=== PATIENT | male | born 1970 | race Asian ===

== ENCOUNTER 2021-11-27 09:18 | Inpatient (IN) ==
[~2021-11-27 09:18] MED LIST: RAPID SEQUENCE INDUCTION BAG ONE
[2021-11-27] MEDS ORDERED: NOREPINEPHRINE/D5W 4 MG/250 ML IV ONE (09:32)
[2021-11-27] MEDS ORDERED: HEPARIN (PORCINE) 1000 UNIT/ML 10 ML (CATH LAB USE ONLY) ONE ×2 (09:37→13:27)
[2021-11-27] MEDS ORDERED: fentaNYL citrate 100 MCG/2 ML VIAL ONE ×2 (09:37→13:27)
[2021-11-27] MEDS ORDERED: MIDAZOLAM HCL 1 MG/ML 2ML VIAL ONE ×3 (09:37→13:26)
[2021-11-27] MEDS ORDERED: NITROGLYCERIN/D5W 100MCG/ML 20ML SYR ONE ×2 (09:37→13:27)
[2021-11-27] MEDS ORDERED: niCARdipine HCL INJ 2.5 MG/ML 10 ML AMP ONE ×2 (09:37→13:27)
[2021-11-27] MEDS ORDERED: SODIUM CHLORIDE 0.9% 500 ML IV STA (09:39)
[2021-11-27 09:42] LABS: iSTAT Creatinine 1.2 mg/dl (0.6-1.3); iSTAT Ionized Calcium 1.04 mmol/l (1.12-1.32); iSTAT Potassium 3.5 mmol/L (3.3-5.0)
[2021-11-27] MEDS ORDERED: PROPOFOL IV EMULSION 10 MG/ML 100 ML VIAL (CATH LAB USE ONLY) ONE (09:49)
--- NOTE | 2021-11-27 09:53 | Emergency Department Note ---
Impression & Plan Cardiac arrest, Acute CT, Atrial fibrillation, Acute hyperglycemia ED Provider Note NAME: FRANK SPEAR AGE: 51 SEX: M : 1970 ARRIVES VIA: Ambulance INFORMANT: [ems] ED PROVIDER(S): [Jostin Camilo MD] CHIEF COMPLAINT: Cardiac arrest HISTORY OF PRESENT ILLNESS: The patient is a 51-year-old male who was playing Frisbee golf when he collapsed. Bystanders did start CPR. EMS arrived the patient was without a pulse. He has had various rhythms during the resuscitation, including asystole and V. fib. He has been defibrillated 5 times, he has received 5 doses of IV epinephrine. Patient received 300 mg of IV amiodarone, 100 mg of IV lidocaine, 1 amp of IV bicarb, 1 mg of IV atropine. He received 500 cc of IV saline. There is a right proximal tibial IO line. Downtime estimated at around 40 to 45 minutes. As per EMS, the patient did regain a pulse for about 5 to 10 minutes and then, lost his pulse again. The resuscitation on the way to the hospital continued and they again regained a pulse. The patient presents to our ED with a pulse. He has a Garry airway in place. As per EMS, the friends that were with him did not know anything about his past history. Given the circumstances and his mental state, no further history obtainable. REVIEW OF SYSTEMS: Unobtainable given the mental state. PMHx/PSHx: See Below SOCIAL HISTORY: See Below. PHYSICAL EXAM: GENERAL: Patient is in no acute distress. HEENT: No acute trauma, normocephalic atraumatic, mucous membranes moist, no nasal congestion, no scleral icterus. There is a Garry airway in place orally. NECK: No adenopathy, trachea is midline. LUNGS: Clear to auscultation bilaterally when the breathing is assisted, no wheeze, no rhonchi, breath sounds equal. HEART: No murmurs, irregular rhythm, mildly tachycardic. ABDOMEN: Soft, no distention. EXTREMITIES: No cyanosis or edema, no extremity deformities appreciated. NEUROLOGIC: Unresponsive, intubated. No extremity movement seen. Occasionally, the patient appeared to take a breath above the ventilator. SKIN: No rash, no jaundice, no diaphoresis. DIFFERENTIAL DIAGNOSIS: V. fib, V. tach, CT, cardiac arrest, electrolyte imbalance, anemia, stroke, anoxia, among others. EMERGENCY DEPARTMENT COURSE/PROCEDURES: ECG: Indication was cardiac arrest. The initial ECG showed a wide-complex rhythm with ST elevation in the anterior and lateral leads. The rhythm appeared to be atrial fibrillation. The rate was 114. There was a wide QRS complex. There was no PVC. The QTc was long at 611. Repeat ECG: Indication was cardiac arrest. The ECG showed a sinus tachycardia with a rate of 111. There was ST elevation across the anterior and lateral leads consistent with acute CT. QTC was 505. No PVCs. When compared to the ECG earlier, the wide QRS complexes had resolved. A. fib was no longer present. Continuous Cardiac Monitoring: An order was placed for continuous cardiac monitoring. The monitor shows a rate of 108 with sinus tachycardia. Critical Care Note: I have personally spent 49 minutes of critical care time in the direct management of this patient. This includes bedside care, interpretation of diagnostic studies, and testing, discussion with consultants, patient, and family members, and other required patient management activities. This 49 minutes is in excess of all separately billable procedures. Intubation: This procedure was performed by me. The patient was hyper oxygenated. Using rapid technique, the patient was intubated with a glide scope. Some suction was required. No complication. The endotracheal tube was placed at 26 centimeters at the the lips. Good O2 saturation noted afterwards. Good CO2 color change. Breath sounds equal bilaterally. Post intubation chest x-ray demonstrated the tube to be in good position. MEDICAL DECISION MAKING: There was no leukocytosis or concerning anemia. There was a normal platelet count. INR was 1.1. PTT are was 2.1. There was an anion gap of 18. CO2 a bit low at 17. No renal failure. Glucose was high at around 325. ALT was elevated at 335. The bilirubin was normal. Lipase was a bit elevated at 136. The patient appeared to be in a euthyroid state. Troponin was elevated at 93, consistent with acute cardiac injury. ECG initially showed an atrial fibrillation with a wide-complex QRS. Anterior lateral ST elevation was seen. Repeat ECG showed a sinus tachycardia with a more narrow QRS complex. Anterior lateral ST elevation was seen. Chest film showed the endotracheal tube to be in proper position, no CHF or pneumonia. The patient was aggressively managed. He was given 50 mEq of IV bicarb. He received a 500 cc saline bolus. A norepinephrine drip was ordered but not started in the ED as his blood pressure improved spontaneously. The patient's Garry airway was removed and intubation was accomplished with a glide scope. A Ruff catheter and NG tube was placed. 2 peripheral IVs were initiated. I did speak with the car refinisher, Dr. Gleason. The patient was seen by Dr. Gleason at bedside. The patient is being sent to the cardiac catheterization laboratory. Dr. Gleason will start the cooling protocol in the cardiac lab. The patient appears to have suffered a cardiac arrest, he has findings consiste nt with CT. There was a significant downtime so brain anoxia is of course a concern. By report, his is on the way to the hospital. Of note, I did speak with the on-call hospitalist about the patient's case and condition. Case management has been involved. Past Med/Surg History Medical History Diabetes mellitus HTN (hypertension) Social History Smoking Status: Current every day smoker Tobacco Type: Cigarettes Allergies Allergies Allergy/AdvReac Type Severity Reaction Status Date / Time ibuprofen AdvReac Unknown Verified 11/27/21 12:32 Results & Data (ED) Vital Signs Vital Signs - 24 hr 11/27/21 09:46 11/27/21 09:33 11/27/21 09:35 Pulse Rate 108 H 112 H 111 H Pulse Rate from SpO2 Sensor 113 H 110 H Respiratory Rate 18 16 14 Blood Pressure 108/54 L Blood Pressure Mean 72 Pulse Oximetry 100 95 98 Oxygen Delivery Method Mechanical Vent Mechanical Vent Mechanical Vent Sepsis Recent Fever Within 48 Hours No Sepsis New/Unexplained Change in Mental Status N/A Sepsis Action Taken by Nursing No Action Required End-Tidal CO2 57 55 11/27/21 09:35 11/27/21 09:36 11/27/21 09:36 Pulse Rate 111 H Pulse Rate from SpO2 Sensor 111 H Respiratory Rate 13 Blood Pressure 107/65 94/79 L Blood Pressure Mean 79 84 Pulse Oximetry 99 Oxygen Delivery Method Mechanical Vent Sepsis Recent Fever Within 48 Hours Sepsis New/Unexplained Change in Mental Status Sepsis Action Taken by Nursing End-Tidal CO2 52 11/27/21 09:38 11/27/21 09:38 09/13/22 09:40 Pulse Rate 111 H Pulse Rate from SpO2 Sensor 110 H Respiratory Rate 13 Blood Pressure 95/68 L 107/70 Blood Pressure Mean 77 82 Pulse Oximetry 99 Oxygen Delivery Method Mechanical Vent Sepsis Recent Fever Within 48 Hours Sepsis New/Unexplained Change in Mental Status Sepsis Action Taken by Nursing End-Tidal CO2 50 11/27/21 09:40 11/27/21 09:42 11/27/21 09:42 Pulse Rate 111 H 110 H Pulse Rate from SpO2 Sensor 111 H 111 H Respiratory Rate 15 14 Blood Pressure 108/73 Blood Pressure Mean 84 Pulse Oximetry 100 100 Oxygen Delivery Method Mechanical Vent Mechanical Vent Sepsis Recent Fever Within 48 Hours Sepsis New/Unexplained Change in Mental Status Sepsis Action Taken by Nursing End-Tidal CO2 47 Home Medications Current Medication List: was personally reviewed by me Laboratory Data Attestation: I reviewed the patient's lab results. Result diagrams: 11/27/21 Unknown 11/27/21 Unknown Lab Results 11/27/21 11/27/21 11/27/21 Range/Units 09:29 09:36 09:36 WBC 9.84 (4.8-10.8) K/ul RBC 5.02 (4.63-6.08) M/uL Hgb 15.6 (14.0-18.0) g/dl POC Hgb 17.0 (14.0-18.0) g/dl Hct 48.3 (40.1-51.0) % POC Hct 50 (42-52) % MCV 96.2 (80.0-100.0) fL MCH 31.1 (25.0-34.0) pg MCHC 32.3 (32.0-36.0) g/dL RDW Std Deviation 42.4 (36.4-46.3) fL RDW Coeff of Morteza 11.9 (11.5-14.5) % Plt Count 152 (130-400) K/uL MPV 9.6 (9.4-12.4) fL Immature Gran % (Auto) 4.0 % Neut % (Auto) 10.9 % Lymph % (Auto) 77.5 % [place] % (Auto) 6.0 % Eos % (Auto) 1.0 % Baso % (Auto) 0.6 % Neut # (Auto) 1.07 L (1.4-6.5) K/uL Lymph # (Auto) 7.63 H (1.2-3.4) K/uL [place] # (Auto) 0.59 (0.24-0.82) K/uL Eos # (Auto) 0.10 (0-0.50) K/uL Baso # (Auto) 0.06 (0-0.2) K/uL Immature Gran # (Auto) 0.39 H (0.00-0.02) K/uL Absolute Nucleated RBC 0.04 H (0-0) K/uL Nucleated RBC % (auto) 0.4 % Blood Smear Review PT 11.5 (9.0-12.0) Seconds INR 1.1 (0.9-1.1) APTT 56.8 H* (21.0-31.0) Seconds PTT Ratio 2.1 POC Sodium 136 (135-144) mmol/L Sodium (136-145) mmol/L POC Potassium 3.5 (3.3-5.0) mmol/L Potassium POC Chloride 101 (101-112) mmol/L Chloride (98-107) mmol/L Carbon Dioxide (21-32) mmol/L POC Total CO2 22 L (24-31) mmol/L Anion Gap (3-11) POC Anion Gap 17.0 (16-25) mmol/L POC BUN 19 H (7-18) mg/dl BUN (6-23) mg/dl Creatinine (0.6-1.4) mg/dl POC Creatinine 1.2 (0.6-1.3) mg/dl Est Cr Clr Drug Dosing Est GFR ( Amer) ml/min Est GFR (Non-Af Amer) ml/min BUN/Creatinine Ratio (10-20) Glucose (70-99(Fasting)) mg/dl POC Glucose (other) 325 H (70-99) mg/dl Calcium (8.5-10.1) mg/dl POC Ioniz Calcium Ilana 1.04 L (1.12-1.32) mmol/l Magnesium (1.7-2.4) mg/dl Total Bilirubin (0.2-1.0) mg/dl AST ALT (7-52) U/L Alkaline Phosphatase (34-104) U/L Troponin I High Sens (0-20) pg/ml Total Protein (6.0-8.3) gm/dl Albumin (3.4-5.0) gm/dl Globulin (2.5-4.0) gm/dl Albumin/Globulin Ratio (0.9-2) Lipase (11-82) U/L TSH (0.300-4.500) uIu/ml 11/27/21 11/27/21 Range/Units 09:36 09:36 WBC (4.8-10.8) K/ul RBC (4.63-6.08) M/uL Hgb (14.0-18.0) g/dl POC Hgb (14.0-18.0) g/dl Hct (40.1-51.0) % POC Hct (42-52) % MCV (80.0-100.0) fL MCH (25.0-34.0) pg MCHC (32.0-36.0) g/dL RDW Std Deviation (36.4-46.3) fL RDW Coeff of Morteza (11.5-14.5) % Plt Count (130-400) K/uL MPV (9.4-12.4) fL Immature Gran % (Auto) % Neut % (Auto) % Lymph % (Auto) % [place] % (Auto) % Eos % (Auto) % Baso % (Auto) % Neut # (Auto) (1.4-6.5) K/uL Lymph # (Auto) (1.2-3.4) K/uL [place] # (Auto) (0.24-0.82) K/uL Eos # (Auto) (0-0.50) K/uL Baso # (Auto) (0-0.2) K/uL Immature Gran # (Auto) (0.00-0.02) K/uL Absolute Nucleated RBC (0-0) K/uL Nucleated RBC % (auto) % Blood Smear Review PT (9.0-12.0) Seconds INR (0.9-1.1) APTT (21.0-31.0) Seconds PTT Ratio POC Sodium (135-144) mmol/L Sodium 136 (136-145) mmol/L POC Potassium (3.3-5.0) mmol/L Potassium TNP POC Chloride (101-112) mmol/L Chloride 101 (98-107) mmol/L Carbon Dioxide 17 L (21-32) mmol/L POC Total CO2 (24-31) mmol/L Anion Gap 18 H (3-11) POC Anion Gap (16-25) mmol/L POC BUN (7-18) mg/dl BUN 15 (6-23) mg/dl Creatinine 1.17 (0.6-1.4) mg/dl POC Creatinine (0.6-1.3) mg/dl Est Cr Clr Drug Dosing Not Reportable Est GFR ( Amer) 82.0 ml/min Est GFR (Non-Af Amer) 70.8 ml/min BUN/Creatinine Ratio 12.8 (10-20) Glucose 325 H* (70-99(Fasting)) mg/dl POC Glucose (other) (70-99) mg/dl Calcium 8.2 L (8.5-10.1) mg/dl POC Ioniz Calcium Ilana (1.12-1.32) mmol/l Magnesium 2.4 (1.7-2.4) mg/dl Total Bilirubin 0.4 (0.2-1.0) mg/dl AST TNP ALT 335 H (7-52) U/L Alkaline Phosphatase 67 (34-104) U/L Troponin I High Sens 93.1 H* (0-20) pg/ml Total Protein 5.4 L (6.0-8.3) gm/dl Albumin 3.3 L (3.4-5.0) gm/dl Globulin 2.1 L (2.5-4.0) gm/dl Albumin/Globulin Ratio 1.6 (0.9-2) Lipase 136 H (11-82) U/L TSH 4.016 (0.300-4.500) uIu/ml Administered Medications Amiodarone HCl/Dextrose (Nexterone / D5w) 360 mg in 200 mls @ 33.333 mls/hr IV ONE ONE; Protocol Stop: 11/27/21 18:14 Last Admin: 11/27/21 11:52 Dose: 1 mg/min, 33.3 mls/hr Documented By: LISA Co-signed By: KARAN Norepinephrine Bitartrate (Levophed/D5w) 4 mg in 250 mls @ 15.581 mls/hr IV .[id number] RUSS; Protocol Stop: 12/27/21 12:14 Last Admin: 11/27/21 11:52 Dose: 0.1 mcg/kg/min, 31.2 mls/hr Documented By: LISA Co-signed By: KARAN Discontinued Medications Ioversol (Optiray 320 125ml) 108 ml IV ONCE ONE Stop: 11/27/21 12:41 Last Admin: 11/27/21 12:41 Dose: 108 ml Documented By: COLLETTE Imaging Data Radiologist's Impression: Chest X-Ray 11/27/21 09:39 XR chest 1V portable HISTORY: 51 years-old Male Chest Pain acute cardiac arrest COMPARISON: None TECHNIQUE: Semierect AP view of the chest FINDINGS: Endotracheal tube overlies the midline, 4.0 cm superior to the maría elena. Enteric tube distal tip projects over the gastroesophageal junction. Mild gaseous distention of the stomach. Cardiomediastinal and hilar silhouettes are within normal limits. No pneumothorax, pleural effusion, airspace consolidation or overt pulmonary edema. Mild right hemidiaphragmatic elevation. Bones appear grossly intact. IMPRESSION: 1. Endotracheal and enteric tube placement as above. 2. The lungs appear clear. 3. No pneumothorax. ACT 112: Negative or not required by law. The above report was generated using voice recognition software. It may contain grammatical, syntax or spelling errors. Electronically signed by: Satnam Perales M.D. 11/27/2021 10:07 AM Discharge Plan Visit Data Chief Complaint: Cardiac Arrest/CPR Stated Complaint: CARDIAC ARREST ED Provider: Jostin Camilo Discharge Problem: Cardiac arrest, Acute CT, Atrial fibrillation, Acute hyperglycemia Patient Disposition: Admitted As Inpatient Condition: Critical Discharge Instructions Interventions: ED Discharge Assessment Last Done: 11/27/21 09:50
[2021-11-27] MEDS ORDERED: AMIODARONE 360MG / 200ML D5W (CATH LAB USE ONLY) ONE (09:58)
[2021-11-27 09:59] LABS: Hematocrit (blood only) 48.3 % (40.1-51.0); Hemoglobin 15.6 g/dl (14.0-18.0); Mean Corpuscular Hemoglobin 31.1 pg (25.0-34.0); Mean Corpuscular Hgb Conc 32.3 g/dL (32.0-36.0); Mean Corpuscular Volume 96.2 fL (80.0-100.0); Mean Platelet Volume 9.6 fL (9.4-12.4); Nucleated RBC # (auto) 0.04 K/uL (0-0); Nucleated RBC % (auto) 0.4 %; Platelet Count 152 K/uL (130-400); RDW Coefficient of Variation 11.9 % (11.5-14.5); RDW Standard Deviation 42.4 fL (36.4-46.3); Red Blood Count 5.02 M/uL (4.63-6.08); White Blood Count 9.84 K/ul (4.8-10.8)
--- NOTE | 2021-11-27 10:09 | XRay Report ---
XR chest 1V portable HISTORY: 51 years-old Male Chest Pain acute cardiac arrest COMPARISON: None TECHNIQUE: Semierect AP view of the chest FINDINGS: Endotracheal tube overlies the midline, 4.0 cm superior to the maría elena. Enteric tube distal tip projec ts over the gastroesophageal junction. Mild gaseous distention of the stomach. Cardiomediastinal and hilar silhouettes are within normal limits. No pneumothorax, pleural effusion, airspace consolidation or overt pulmonary edema. Mild right hemidiaphragmatic elevation. Bones appear grossly intact. IMPRESSION: 1. Endotracheal and enteric tube placement as above. 2. The lungs appear clear. 3. No pneumothorax. ACT 112: Negative or not required by law. The above report was generated using voice recognition software. It may contain grammatical, syntax o r spelling errors. Electronically signed by: Satnam Perales M.D. 11/27/2021 10:07 AM
[2021-11-27] MEDS ORDERED: ONDANSETRON INJ 2 MG/ML 2 ML VIAL ONE (10:21)
--- NOTE | 2021-11-27 10:24 | History & Physical Report ---
Date of Service November 27, 2021 Assessment & Plan (1) Cardiac arrest: Plan: - Patient experienced temporary respiratory distress before collapsing while playing disc golf this morning. - CPR started by bystander, EMS arrived and patient did not have a pulse. Estima kojo time down ~40 minutes. - Pre ED Course: Defibrillation x 5 times 5 doses of IV epi, 300 mg of IV amiodarone, 100 mg of IV lidocaine, 1 amp of IV bicarb, 1 mg of IV atropine - Patient intubated garry airway in field, intubated with ET tube in ED. - Bicarb given in ED. - NG tube inserted. - STAT consult placed to cardiology, patient was emergently brought to cardiac catheterization lab. (2) STEMI (ST elevation myocardial infarction): Plan: Cardiac catheterization findings: LM -medium caliber, short, almost separate ostium (mild concentric disease on IVUS) LAD -medium caliber, diffuse 40% proximal disease, mid to distal vessel without significant disease and wraps around apex. Medium D3 without disease. (Waveform dampening with catheter engagement, 50 to 60% ostial LAD stenosis on IVUS) Circumflex -medium caliber, 30% proximal. Small OM2 60% proximal. Large OM3 50% mid. RCA -dominant, medium caliber, 30% proximal, 30 to 40% mid segment disease. Distal vessel, PDA, PLB without significant disease. Patient was admitted to ICU s/p cardiac catheterization. Cardiac cath revealed nonobstructive multivessel CAD, did not require stenting cardiac output was preserved. Upon transfer to the ICU, patient was extubated and following commands or ICU staff. He was noted to have some mild respiratory distress and was placed on BiPAP. He was then sent for stat CT to rule out PE as the origin of his cardiac arrest. Upon arrival back to the unit, patient went into pulseless V. tach and CPR was initiated. Despite best efforts and > 30 minutes of ACLS protocol, patient was pronounced at 1336. (3) Tobacco use: (4) Atrial fibrillation: (5) Aspiration pneumonia: History of Present Illness Chief Complaint: cardiac arrest Primary Care Provider: NO PCP Ni Rodriguez is a 51-year-old male, unknown PMH, who was playing Frisbee golf when he collapsed. Bystanders did start CPR and called EMS. Upon EMS arrival, patient was without a pulse. Per the report, patient was in multiple rhythms during resuscitation, including asystole and V. fib. En route patient received reported 5 defibrillations, 5 doses of IV epinephrine, as well as 30 mg IV amiodarone, 100 mg IV lidocaine, 1 amp of IV bicarb, and 1 mg IV atropine. Presented to the ED intubated with a Garry airway, right proximal tibia IO line in place. I was told the patient had been down for approximately 40 minutes without a pulse. At one point they did regain a pulse for 5-10 minutes, however lost it again but were able to regain it. Patient did present to the ED with a pulse. On arrival, patient was intubated with an ET tube, received an additional 500 cc IV fluid. Initial EKG on arrival showed A. fib with RVR, anterolateral injury pattern and prolonged QT. There were ST elevations in the lateral leads. Patient was emergently brought to the cardiac catheterization lab. At the time I was called for admission, there was CXR available that shows ET tube is in place, lungs appear clear and there is no pneumothorax. Labs were pending. Patient was admitted to ICU s/p cardiac catheterization. Cardiac cath revealed nonobstructive multivessel CAD, did not require stenting cardiac output was preserved. Upon transfer to the ICU, patient was extubated and following commands or ICU staff. He was noted to have some mild respiratory distress and was placed on BiPAP. He was then sent for stat CT to rule out PE as the origin of his cardiac arrest. Upon arrival back to the unit, patient went into pulseless V. tach and CPR was initiated. Despite best efforts and > 30 minutes of ACLS protocol, patient was pronounced at 1336. Allergies Allergy/AdvReac Type Severity Reaction Status Date / Time ibuprofen AdvReac Unknown Verified 11/27/21 12:32 Past Med/Surg History Medical History Diabetes mellitus HTN (hypertension) Social History Smoking Status: Current every day smoker Tobacco Type: Cigarettes Review of Systems Review of Systems: Unobtainable due to endotracheal tube Physical Exam Physical Exam: Physical exam unable to be completed. At the time patient was placed for admission he had already been brought to cardiac catheterization lab. Upon transfer to ICU, patient went to CT scan, and when he had returned he quickly went into pulseless v tach and a CODE BLUE was called. At the time of my arrival, ACLS protocol was already initiated, unfortunately patient was declared before I had the chance to evaluate and perform a formal physical exam. Results & Data Results & Data ([facility]) Vital Signs (Past 12 Hours) Vital Signs Pulse Resp BP Pulse Ox O2 Del Method 11/27/21 09:42 110 H 14 100 Mechanical Vent 11/27/21 09:42 108/73 11/27/21 09:40 111 H 15 100 Mechanical Vent 11/27/21 09:40 107/70 11/27/21 09:38 111 H 13 99 Mechanical Vent 11/27/21 09:38 95/68 L 11/27/21 09:36 94/79 L 11/27/21 09:36 111 H 13 99 Mechanical Vent 11/27/21 09:35 107/65 11/27/21 09:35 111 H 14 98 Mechanical Vent 11/27/21 09:33 112 H 16 95 Mechanical Vent 11/27/21 09:46 108 H 18 108/54 L 100 Mechanical Vent Laboratory Results Abnormal lab results 11/27/21 11/27/21 11/27/21 Range/Units 09:29 09:36 09:36 Neut # (Auto) 1.07 L (1.4-6.5) K/uL Lymph # (Auto) 7.63 H (1.2-3.4) K/uL Immature Gran # (Auto) 0.39 H (0.00-0.02) K/uL Absolute Nucleated RBC 0.04 H (0-0) K/uL Carbon Dioxide 17 L (21-32) mmol/L POC Total CO2 22 L (24-31) mmol/L Anion Gap 18 H (3-11) POC BUN 19 H (7-18) mg/dl Glucose 325 H* (70-99(Fasting)) mg/dl POC Glucose (other) 325 H (70-99) mg/dl Calcium 8.2 L (8.5-10.1) mg/dl POC Ioniz Calcium Ilana 1.04 L (1.12-1.32) mmol/l ALT 335 H (7-52) U/L Troponin I High Sens 93.1 H* (0-20) pg/ml Total Protein 5.4 L (6.0-8.3) gm/dl Albumin 3.3 L (3.4-5.0) gm/dl Globulin 2.1 L (2.5-4.0) gm/dl Lipase 136 H (11-82) U/L Diagnostic Findings Chest X-Ray 11/27/21 09:39 XR chest 1V portable HISTORY: 51 years-old Male Chest Pain acute cardiac arrest COMPARISON: None TECHNIQUE: Semierect AP view of the chest FINDINGS: Endotracheal tube overlies the midline, 4.0 cm superior to the maría elena. Enteric tube distal tip projects over the gastroesophageal junction. Mild gaseous distention of the stomach. Cardiomediastinal and hilar silhouettes are within normal limits. No pneumothorax, pleural effusion, airspace consolidation or overt pulmonary edema. Mild right hemidiaphragmatic elevation. Bones appear grossly intact. IMPRESSION: 1. Endotracheal and enteric tube placement as above. 2. The lungs appear clear. 3. No pneumothorax. ACT 112: Negative or not required by law. The above report was generated using voice recognition software. It may contain grammatical, syntax or spelling errors. Electronically signed by: Satnam Perales M.D. 11/27/2021 10:07 AM Code Status & VTE Plan Code Status Full Code. Supervising Physician Co-Signing Physician Notes Attending Attestation and Admission Note: Chart reviewed extensively, care d/w ISAI Virgen. I agree with the hood components of her documentation. 51yo male with history of T2DM, HTN, and tobacco use who was playing frisbee golf and had a witnessed collapse. Bystander CPR was initiated and EMS was summoned to the scene. Per the ER attending's record -- "When EMS arrived the patient was without a pulse. He has had various rhythms during the resuscitation, including asystole and V. fib. He has been defibrillated 5 times, he has received 5 doses of IV epinephrine. Patient received 300 mg of IV amiodarone, 100 mg of IV lidocaine, 1 amp of IV bicarb, 1 mg of IV atropine. He received 500 cc of IV saline. There is a right proximal tibial IO line. Downtime estimated at around 40 to 45 minutes. As per EMS, the patient did regain a pulse for about 5 to 10 minutes and then, lost his pulse again. The resuscitation on the way to the hospital continued and they again regained a pulse. The patient presents to our ED with a pulse. He has a Garry airway in place." Code blue and code heart alerts were called upon arrival in the [facility] ER. Once in the ER the ER attending exchanged his Garry airway for ETT via glidescope. He was taken emergently to the bottle labeler by Dr Gleason and no obstructive coronary lesion was found; no stent deployed. Subsequently admitted to the ICU. Once in the ICU I did not have the ability to perform any physical exam as he was either receiving CPR or he was in radiology. Unfortunately the patient experienced vtach/vfib arrest once again in the ICU and, despite aggressive measures via ACLS protocol, ROSC was not achieved. see discharge summary for further information. Biju Farris MD PG Care Time/CCT Total # of Minutes Spent Total Time Spent with Patient: Total time spent is greater than 50% in coordination of care (as documented) at patient's floor/unit and/or counseling patient: Coding Level of Care Code None Diagnoses Cardiac arrest I46.9 STEMI (ST elevation myocardial infarction) I21.3 Tobacco use Z72.0 Atrial fibrillation I48.0 Atrial fibrillation type: paroxysmal Aspiration pneumonia J69.0 (1) Atrial fibrillation Atrial fibrillation type: paroxysmal Qualified Code(s): I48.0 - Paroxysmal atrial fibrillation
[2021-11-27 10:29] LABS: Alanine Aminotransferase 335 U/L (7-52); Albumin Globulin Ratio 1.6 (0.9-2); Albumin Level 3.3 gm/dl (3.4-5.0); Alkaline Phosphatase 67 U/L (34-104); Anion Gap 18 (3-11); BUN Creatinine Ratio 12.8 (10-20); Bilirubin,Total 0.4 mg/dl (0.2-1.0); Blood Urea Nitrogen 15 mg/dl (6-23); Calcium 8.2 mg/dl (8.5-10.1); Carbon Dioxide 17 mmol/L (21-32); Chloride 101 mmol/L (98-107); Est GFR (Non-African American) 70.8 ml/min; Globulin 2.1 gm/dl (2.5-4.0); Glucose 325 mg/dl (70-99(Fasting)); Lipase 136 U/L (11-82); Magnesium 2.4 mg/dl (1.7-2.4); Sodium 136 mmol/L (136-145); Total Protein 5.4 gm/dl (6.0-8.3); Troponin I High Sensitivity 93.1 pg/ml (0-20)
[2021-11-27 10:35] LABS: INR 1.1 (0.9-1.1); Partial Thromboplastin Ratio 2.1; Prothrombin Time 11.5 Seconds (9.0-12.0)
[2021-11-27 10:40] LABS: Basophils # (auto) 0.06 K/uL (0-0.2); Basophils % (auto) 0.6 %; Immature Granulocytes # (auto) 0.39 K/uL (0.00-0.02); Lymphocytes # (auto) 7.63 K/uL (1.2-3.4); Lymphocytes % (auto) 77.5 %; Monocytes # (auto) 0.59 K/uL (0.24-0.82); Neutrophils # (auto) 1.07 K/uL (1.4-6.5); Neutrophils % (auto) 10.9 %
[2021-11-27 11:08] LABS: Partial Thromboplastin Time 56.8 Seconds (21.0-31.0)
[2021-11-27] MEDS ORDERED: ICU PROTOCOL FOR HYPERGLYCEMIA PRN ×2 (11:56→12:32)
[2021-11-27] MEDS ORDERED: SODIUM CHLORIDE 0.9% 1000ML 1,000 ML IV SCH (12:00)
[2021-11-27] MEDS ORDERED: STAT IV Infusion **Titration per Protocol STA (12:01)
[2021-11-27] MEDS ORDERED: 0.2 MICRON FILTER SET 1 EACH IV ONE (12:01)
[2021-11-27 12:02] LABS: iSTAT Arterial Blood Gas HCO3 14 meg/L (19-24); iSTAT Arterial Blood Gas pCO2 41 mmHg (35-46); iSTAT Arterial Blood Gas pH 7.14 (7.35-7.45); iSTAT Arterial Blood Gas pO2 101 mmHg (80-95); iSTAT Carbon Dioxide 15 mmol/L (24-31)
[2021-11-27] MEDS ORDERED: AMIODARONE / D5W 360 MG/200 ML BAG IV ONE (12:15)
[2021-11-27] MEDS ORDERED: NOREPINEPHRINE/D5W 4 MG/250 ML PLCT IV SCH (12:15)
[2021-11-27] MEDS ORDERED: Patient's HEIGHT &/or WEIGHT Needed SCH (12:15)
--- NOTE | 2021-11-27 12:25 | Critical Care Consultation ---
Date of Consultation November 27, 2021 Assessment & Plan (1) Cardiac arrest: (2) STEMI (ST elevation myocardial infarction): 51-year-old male with minimal past medical history aside from tobacco abuse, BERNARD and diabetes mellitus who presented to the hospital as a cardiac arrest. He underwent a cardiac cath which revealed nonobstructive multivessel coronary artery disease. He essentially had ventricular tachycardia storm of unclear etiology. Hemodynamically significant pulmonary embolism was ruled out. He was profoundly acidotic due to cardiogenic shock. He was on an epinephrine infusion and received multiple bouts of amiodarone. He also received multiple defibrillation attempts. Unfortunately, despite our efforts, the patient . Condolences were offered to the family. Aspiration pneumonia may have also played a role in antibiotics. Numerous discussions were had with the bedside respiratory therapist, bedside nurse and district resource officer who is also at bedside. The patient had an intraosseous line in place, right femoral sheath and a left ICY femoral catheter in place. (3) Aspiration pneumonia: History of Present Illness Reason for Consultation: Cardiac arrest Attending Physician: Biju Farris History of Present Illness 51-year-old male with a past medical history of tobacco abuse presenting to the hospital after undergoing cardiac arrest while playing [employer] golf. He collapsed and CPR was started bystanders. EMS arrived and the patient was without a pulse. Patient had multiple bouts of defibrillation due to V. fib arrest. He received 5 defibrillations, 5 doses of IV epinephrine and 300 mg of IV amiodarone in the field. He also received 100 mg of IV lidocaine in the fi eld. He was intubated with a Garry airway and an IO was placed in his right proximal tibia. He presented to the ED with a pulse. Patient was intubated in the ER and given additional fluids. He underwent a cardiac catheterization. Cardiac cath noted moderate diffuse disease. No stenting was required. Cardiac output was preserved. Upon arrival to the ER, the patient was off sedation and following all commands. He was hemodynamically stable. The patient was electively extubated and was able to talk. After about 10 to 15 minutes he did have increasing oxygen requirements and was placed on BiPAP. He was sent for CT scan of his chest to rule out pulmonary embolism. No pulmonary embolism was seen, but he did have infiltrates bilaterally suggestive of possible pulmonary contusions, pneumonia and/or atelectasis. Upon arrival back to the ICU, the patient went back into ventricular tachycardia and went pulseless. He received several defibrillations and the ACLS protocol was initiated. We were unable to achieve ROSC after running the ACLS protocol for over 30 minutes. This was discussed with the patient's and family friend. Ultimately the patient was pronounced . Allergies Allergy/AdvReac Type Severity Reaction Status Date / Time ibuprofen AdvReac Unknown Verified 11/27/21 12:32 Patient History Medical History (Updated 11/27/21 @ 15:39 by Guillermo Dennis MD) Aspiration pneumonia Social History Smoking Status: Current every day smoker Tobacco Type: Cigarettes Review of Systems Review of Systems: Unobtainable due to endotracheal tube Physical Exam Physical Exam: Constitutional: Well extubated, for a brief period of time the patient did not appear to be in any distress. Eyes: Pupils are equal round and reactive to light. Conjunctivae are normal. Anicteric sclera. Ears nose, mouth and throat: No significant swelling, Mallampati class II. Neck: Trachea is midline. Visual inspection is normal. Respiratory: Rhonchorous bilaterally. Diminished breath sounds. Cardiovascular: Regular rate and rhythm. No murmurs. No edema. Gastrointestinal: Normal bowel sounds, soft, nontender and nondistended. No hepatosplenomegaly noted. Musculoskeletal: No cyanosis. Patient is able to move all extremities. Strength is 5 out of 5 in the upper and lower extremities. Skin: No rashes, warm dry and intact. Neurologic: No obvious focal neurological deficits seen. Psychiatric: Alert and oriented x3 with a euthymic affect. Results & Data Results & Data ([facility]) Vital Signs (Past 12 Hours) Vital Signs Pulse Resp BP Pulse Ox O2 Del Method FiO2 11/27/21 12:15 98 H 21 114/76 87 L BiPAP 30 11/27/21 12:10 99 H 23 124/74 88 L BiPAP 30 11/27/21 12:06 104 H 18 109/81 92 11/27/21 12:00 100 H 23 102/78 96 11/27/21 11:58 101 H 22 113/75 94 11/27/21 12:11 99 H 20 92 100 11/27/21 12:01 101 H 24 100 100 11/27/21 09:42 110 H 14 100 Mechanical Vent 11/27/21 09:42 108/73 11/27/21 09:40 111 H 15 100 Mechanical Vent 11/27/21 09:40 107/70 11/27/21 09:38 111 H 13 99 Mechanical Vent 11/27/21 09:38 95/68 L 11/27/21 09:36 94/79 L 11/27/21 09:36 111 H 13 99 Mechanical Vent 11/27/21 09:35 107/65 11/27/21 09:35 111 H 14 98 Mechanical Vent 11/27/21 09:33 112 H 16 95 Mechanical Vent 11/27/21 09:46 108 H 18 108/54 L 100 Mechanical Vent Coding Level of Care Code Critical Care 1st 30-74 mins Diagnoses Cardiac arrest I46.9 STEMI (ST elevation myocardial infarction) I21.3 Aspiration pneumonia J69.0 Time Spent (min) 81
[2021-11-27] MEDS ORDERED: OPTIRAY 320 125ml IV ONE (12:40)
--- NOTE | 2021-11-27 12:41 | Cardiac Catheterization ---
[facility] Data: Pile Driver Operator Barge Mounted Cardiac Status Clinical evaluation leading to the procedure CAD Presenation: Sx unlikely to be ischemic Diagnostic Physicians Name: Kamaljit Gleason MD Closure Device Recommendations: Medical Therapy and/or Counseling Cardiac Cath Procedure Full Procedure Date November 27, 2021 Pre-Procedure Diagnosis Pre-Procedure Diagnosis: Acute Coronary Syndrome and Cardiothoracic Symptom (Cardiac arrest) AUC Score AUC Score: 7 Post-Procedure Diagnosis Post-Procedure Diagnosis: Moderate CAD, Normal LV Systolic Function and Normal Intracardiac Pressures Procedure(s) Performed Procedure(s) Performed: Coronary Angiography, Left Heart Cath, Right Heart Cath and Procedure (Cooling catheter placement, LT radial A-line placement) Production Stage Manager Kamaljit Gleason MD Tool Grinder Operator(s) [place] Estimated Blood Loss Estimated Blood Loss: 20 Medication(s) Medication(s): Fentanyl, Heparin, Lidocaine 1%, Nicardipine, Nitroglycerin and Versed Summary of Findings Indication: Out of hospital cardiac arrest. Post ROSC anterolateral ST elevations on ECG. Access: 6Fr right radial, 6Fr right CFV, 7Fr left CFV. LT radial A-line Catheters: EBU 3.5 guide, diagnostic JR4 Findings: LM -medium caliber, short, almost separate ostium (mild concentric disease on IVUS) LAD -medium caliber, diffuse 40% proximal disease, mid to distal vessel without significant disease and wraps around apex. Medium D3 without disease. (Waveform dampening with catheter engagement, 50 to 60% ostial LAD stenosis on IVUS) Circumflex -medium caliber, 30% proximal. Small OM2 60% proximal. Large OM3 50% mid. RCA -dominant, medium caliber, 30% proximal, 30 to 40% mid segment disease. D istal vessel, PDA, PLB without significant disease. RA 9 RV 34/13 PA 32/17 (23) PAWP 15 LVEDP 16 PaSat 72% AoSat 95% Graeme CO/CI 5.2/2.6 IVUS of LAD/circumflex Left main cannulated with EBU 3.5 guide BMW wire navigated into LAD [place] IVUS catheter placed to mid LAD Pullback revealed mild diffuse mid segment disease, minimally calcified 50 to 60% ostial LAD stenosis with questionable thrombus. Short left main with mild diffuse disease Whisper wire navigated into circumflex IVUS catheter placed in mid circumflex Pullback revealed minimal proximal/mid disease, 30% ostial disease. During procedure patient maintained on amiodarone infusion and was electrically stable. Patient making purposeful movements and started on sedation initially with propofol later bolus Versed/fentanyl. With sedation dropped systolic pressures to 70s and started on norepinephrine. Multiple episodes of vomiting during procedure. At completion of procedure on norepinephrine 0.1, was moving all extremities, eyes intermittently open and seem to respond to voice command. Arterial Closure: TR band Summary: 1. Moderate nonobstructive multivessel CAD -50 to 60% ostial LAD by IVUS 30% ostial circumflex. 60% small OM2, 50% mid OM3 30 to 40% mid RCA 2. Normal left and right-sided filling pressures 3. Normal pulmonary artery pressures 4. Preserved cardiac output Recommendations: Patient with CHAD-3 flow throughout his coronary arteries. No clear evidence of ACS to explain patient's cardiac arrest. IVUS of LAD noteworthy for intermediate ostial disease but does not appear obstructive. During procedure has been electrically and hemodynamically stable on minimal pressor support with preserved cardiac output and normal filling pressures. No clear indication for high-risk PCI/CABG at this time. Recommend transfer to ICU for further stabilization and respiratory/post arrest care Trend troponin until peak. Obtain echocardiogram Continue amiodarone infusion Wean norepinephrine as able Resume heparin after TR band removed Start aspirin, statin with NG in place/taking p.o. Long-term pending clinical course will consider repeat coronary angiography plus FFR to further assess ostial LAD stenosis. Likely will need ICD. Hemodynamics Rest Ao:: 87/49/63 Final Ao: 115/59/77 LV: 78/16 Recommendations Recommendations: Medical Therapy and/or Counseling Specimens Specimens: None Radiation Exposure (mGy) 2234 Contrast (mls) 100 Anesthesia Moderate 5922-6163 Procedural Complication(s) None Disposition ICU I attest to the content of the Intraoperative Record and any orders documented therein. Any exceptions are noted below. ybuy Card Cath Procedure Codes Cardiac Catheterization Procedure 1: Cardiovascular Cath Procedures: 56644 Coronaries & LHC (+/-LV) & RHC Therapeutic Services & Ancillary Procedure 1: Cardiovascular Tx and Anc Procedures: 55219 Insertion Central Venous Catheter Procedure 2: Cardiovascular Tx and Anc Procedures: 71127 Arterial Line Placement Moderate Sedation Procedure 1: Sedation/Anesthesia: 06690 Mod Sedation by the same physician;Init15 Min Child Age 5 & Up Procedure 2: Sedation/Anesthesia: 22458 Mod Sedation by the same physician; Ea [id number] Minutes PG Care Time/CCT Total # of Minutes Spent Total Time Spent with Patient: Total time spent is greater than 50% in coordination of care (as documented) at patient's floor/unit and/or counseling patient:
[2021-11-27] MEDS ORDERED: PIPERACILLIN/TAZOBACTAM 3.375 GM in DEXTROSE 5% 100 ML IV SCH (12:45)
[2021-11-27] MEDS ORDERED: LACTATED RINGER'S 500 ML IV ONE (12:45)
--- NOTE | 2021-11-27 13:23 | CT Scan Report ---
CT ANGIOGRAPHY OF THE CHEST, PULMONARY EMBOLUS PROTOCOL CLINICAL HISTORY: Post cardiac arrest. COMPARISON STUDY: Chest radiograph November 27, 2021 at 9:37 AM. TECHNIQUE: Following IV administration of 108 mL of Optiray, helical axial images of the chest were o btained utilizing the pulmonary embolus protocol. Maximal intensity projections and sagittal and cor onal reformats were viewed on an independent 3D workstation. IV contrast was administered without co mplication. Automated exposure control was utilized for the study. A dose lowering technique was ut ilized adhering to the principles of ALARA. CT DOSE: 662.05 mGycm FINDINGS: No pulmonary emboli are identified although segmental and subsegmental pulmonary arteries are suboptimally assessed due to respiratory motion. There is no thoracic aortic dissection. Size of the heart is normal. There is no pericardial effusion. The endotracheal and nasogastric tubes have be en removed. There is gaseous distention of the stomach, partially imaged on this exam. There is no pn eumothorax or pleural effusion. There has been interval development of extensive consolidation since chest radiograph performed earlier today. Specifically, note is made of dense consolidation within th e apical and posterior segments of the right upper lobe as well as the superior segments of both lowe r lobes. There are additional airspace opacities within lungs. There is mild interlobular septal thic kening. Mucus within the right mainstem bronchus is noted. Airways are patent. There is no cavitation . No pneumothorax or pleural effusion is present. There is hepatic steatosis. No acute fracture withi n the visualized bony thorax. IMPRESSION: 1. No pulmonary emboli identified although segmental and subsegmental pulmonary arteries suboptimally assessed due to respiratory motion. 2. Interval development of extensive multifocal consolidation since chest radiographs performed earli er today. This is nonspecific however aspiration pneumonia is favored. Superimposed pulmonary edema would be difficult to exclude. No pneumothorax or pleural effusion. 3. Hepatic steatosis. ACT 112: Negative or not required by law. Electronically signed by: Gwyn Martinez M.D. 11/27/2021 1:22 PM
[2021-11-27] MEDS ORDERED: Standard 16mcg/mL; 4 MG in 250 mL for BRADYCARDIA IV SCH (13:30)
[2021-11-27 14:04] LABS: Albumin Globulin Ratio 1.4 (0.9-2); Albumin Level 2.7 gm/dl (3.4-5.0); Bilirubin,Total 0.3 mg/dl (0.2-1.0); Calcium 7.3 mg/dl (8.5-10.1); Creatinine Clr Calc Pharmacy 58.7 ml/min; Est GFR (African American) 60.7 ml/min; Est GFR (Non-African American) 52.4 ml/min; Globulin 1.9 gm/dl (2.5-4.0); Potassium 4.7 mmol/L (3.5-5.1); Total Protein 4.6 gm/dl (6.0-8.3)
--- NOTE | 2021-11-27 14:08 | Electrocardiogram Report ---
Test Reason : Blood Pressure : / mmHG Vent. Rate : 111 BPM Atrial Rate : 111 BPM P-R Int : 190 ms QRS Dur : 128 ms QT Int : 386 ms P-R-T Axes : 099 114 -49 degrees QTc Int : 524 ms Sinus tachycardia Non-specific intra-ventricular conduction block Anterior injury pattern ACUTE AL / STEMI Abnormal ECG When compared with ECG of 27-NOV-2021 09:28, (unconfirmed) Sinus rhythm has replaced Atrial fibrillation Questionable change in QRS duration Questionable change in initial forces of Inferior leads Confirmed by Bright Nascimento ([id number]) on 11/27/2021 2:07:46 PM Referred By: REFERRED SELF Confirmed By:Bright Nascimento
--- NOTE | 2021-11-27 14:10 | Electrocardiogram Report ---
Test Reason : Blood Pressure : / mmHG Vent. Rate : 114 BPM Atrial Rate : 065 BPM P-R Int : 000 ms QRS Dur : 100 ms QT Int : 444 ms P-R-T Axes : 000 105 -75 degrees QTc Int : 611 ms Poor data quality, interpretation may be adversely affected Atrial fibrillation with rapid ventricular response with premature ventricular or aberrantly conducte d complexes Rightward axis Anterolateral injury pattern Prolonged QT ACUTE NC / STEMI Abnormal ECG No previous ECGs available Confirmed by Bright Nascimento ([id number]) on 11/27/2021 2:09:46 PM Referred By: REFERRED SELF Confirmed By:Bright Nascimento
[2021-11-27 14:20] LABS: Basophils % (auto) 0.7 %; Eosinophils # (auto) 0.07 K/uL (0-0.50); Eosinophils % (auto) 0.2 %; Hematocrit (blood only) 47.8 % (40.1-51.0); Hemoglobin 15.4 g/dl (14.0-18.0); Immature Granulocytes # (auto) 1.33 K/uL (0.00-0.02); Immature Granulocytes % (auto) 4.4 %; Lymphocytes % (auto) 27.1 %; Mean Corpuscular Hgb Conc 32.2 g/dL (32.0-36.0); Mean Corpuscular Volume 96.4 fL (80.0-100.0); Mean Platelet Volume 9.5 fL (9.4-12.4); Monocytes # (auto) 3.18 K/uL (0.24-0.82); Monocytes % (auto) 10.5 %; Neutrophils # (auto) 17.28 K/uL (1.4-6.5); Neutrophils % (auto) 57.1 %; Nucleated RBC # (auto) 0.05 K/uL (0-0); Nucleated RBC % (auto) 0.2 %; Platelet Count 189 K/uL (130-400); RDW Coefficient of Variation 12.1 % (11.5-14.5); RDW Standard Deviation 42.8 fL (36.4-46.3); Red Blood Count 4.96 M/uL (4.63-6.08); Smudge Cells Present; Toxic Granulation 1+; Toxic Vacuolation 1+; White Blood Count 30.26 K/ul (4.8-10.8)
[2021-11-27] MEDS ORDERED: PIPERACILLIN/TAZOBACTAM 4.5 GM in DEXTROSE 5% 100 ML IV ONE (14:30)
[2021-11-27 16:37] LABS: iSTAT Arterial Blood Gas HCO3 16 meg/L (19-24); iSTAT Arterial Blood Gas pCO2 50 mmHg (35-46); iSTAT Arterial Blood Gas pH 7.12 (7.35-7.45); iSTAT Arterial Blood Gas pO2 50 mmHg (80-95); iSTAT Carbon Dioxide 18 mmol/L (24-31)
--- NOTE | 2021-11-27 17:19 | Cardiology Consultation ---
Date of Consultation November 27, 2021 Assessment & Plan (1) Cardiac arrest: Out of hospital arrest with post ROSC ECG concerning for possible STEMI. Recommend proceeding with emergent cardiac catheterization. Further recommendations pending findings of coronary angiography. History of Present Illness Attending Physician: Biju Farris History of Present Illness 51-year-old man here with out of hospital cardiac arrest and post ROSC ECG with ST elevations in V3 through V6. Patient's prior medical history unknown. History obtained from ED physician, Dr. Camilo. Per report patient was playing [employer] golf this morning when he collapsed and received immediate bystander CPR. On arrival by EMS was pulseless with questionable asystole. Had a prolonged resuscitation of approximately 45 minutes during which reportedly had asystole, V. fib and defibrillated 5 times, received 5 doses of epinephrine as well as amiodarone, lidocaine, bicarb and atropine. On arrival to ED patient had a pulse and was intubated when he arrived. Following elevation patient in sinus rhythm with systolic blood pressures in the 100s to 110s. Allergies Allergy/AdvReac Type Severity Reaction Status Date / Time ibuprofen AdvReac Unknown Verified 11/27/21 12:32 Patient History Medical History Diabetes mellitus HTN (hypertension) Social History Smoking Status: Current every day smoker Tobacco Type: Cigarettes Review of Systems Review of Systems: Unobtainable due to endotracheal tube Physical Exam Physical Exam: General: Intubated HEENT: Sclerae anicteric, pupils equal and dilated Lungs: Clear anteriorly Cardiac: Regular rate and rhythm, no murmurs. Vascular: 2+ radial bilaterally Abdomen: Soft, nontender Extremities: Distal extremities cool, no edema. Results & Data ([facility]) Vital Signs (Past 12 Hours) Vital Signs Pulse Resp BP Pulse Ox O2 Del Method FiO2 11/27/21 13:36 0 L 0 L 0/0 L 0 L 11/27/21 13:30 43 H 11/27/21 13:15 56 H 77 L 11/27/21 13:00 149 H 46 H 11/27/21 12:46 223 H 26 H 11/27/21 12:20 99 H 18 95 11/27/21 12:20 96/74 L 11/27/21 12:15 98 H 21 114/76 87 L BiPAP 30 11/27/21 12:10 99 H 23 124/74 88 L BiPAP 30 11/27/21 12:06 104 H 18 109/81 92 11/27/21 12:00 100 H 23 102/78 96 11/27/21 11:58 101 H 22 113/75 94 11/27/21 12:11 99 H 20 92 100 11/27/21 12:01 101 H 24 100 100 11/27/21 09:42 110 H 14 100 Mechanical Vent 11/27/21 09:42 108/73 11/27/21 09:40 111 H 15 100 Mechanical Vent 11/27/21 09:40 107/70 11/27/21 09:38 111 H 13 99 Mechanical Vent 11/27/21 09:38 95/68 L 11/27/21 09:36 94/79 L 11/27/21 09:36 111 H 13 99 Mechanical Vent 11/27/21 09:35 107/65 11/27/21 09:35 111 H 14 98 Mechanical Vent 11/27/21 09:33 112 H 16 95 Mechanical Vent 11/27/21 09:46 108 H 18 108/54 L 100 Mechanical Vent PG Care Time/CCT Total # of Minutes Spent Total Time Spent with Patient: Total time spent is greater than 50% in coordination of care (as documented) at patient's floor/unit and/or counseling patient: Coding Level of Care Code 47068 Inpt Consult Level 4 Diagnoses Cardiac arrest I46.9
[2021-11-27] MEDS ORDERED: AMIODARONE / D5W 360 MG/200 ML BAG IV SCH (18:15)
[2021-11-27] MEDS ORDERED: NOREPINEPHRINE BITARTRATE 1 MG/ML 4 ML VIAL IV ONE (18:59)
[2021-11-27] MEDS ORDERED: VASOPRESSIN 20 UNIT/ML VIAL IV ONE (18:59)
[2021-11-27] MEDS ORDERED: SODIUM CHLORIDE 0.9% 10ML FLUSH IV ONE ×2 (18:59)
[2021-11-27] MEDS ORDERED: AMIODARONE HCL INJ 50 MG/ML 3 ML VIAL IV ONE (18:59)
[2021-11-27] MEDS ORDERED: SODIUM BICARB 8.4% INJ 50 MEQ/50 ML SYR IV ONE ×2 (18:59)
--- NOTE | 2021-11-27 19:31 | Procedure Note ---
Procedure Note Date of Service November 27, 2021 Note INTUBATION PROCEDURE NOTE: Dr. Guillermo Dennis A time-out was completed verifying correct patient, procedure, site, positioning. Patient was evaluated and required intubation for cardiac arrest. Sedative agent used: None Paralysis agent used: None Emergent consent was implied given patients rapidly declining clinical status and need for airway protection. Number of attempts: 1 The patient was prepared in the appropriate fashion. The patient was easily ventilated using [id number] to achieve adequate oxygenation. A [7.5] [place] endotracheal tube was placed under glide scope guidance to 23 cm at the lip. The stylette was removed and balloon was inflated with 10mL of air. Appropriate Colorimetric change was appreciated. Bilateral breath sounds were heard without air sounds in the abdomen. Patient was actively undergoing chest compressions and ACLS protocol due to a cardiac arrest prior to the intubation. Coding CPT Codes Resuscitation - Resuscitation: 06568 Endotracheal Intubation, emergency ([id number]) [facility] [place] Procedure Codes (Charges) Resuscitation Resuscitation: 07507 Endotracheal Intubation, emergency
--- NOTE | 2021-11-27 19:54 | Discharge Summary ---
Date of Service date of admission - November 27, 2021 date of - November 27, 2021 time of - 1336 Admission HPI Per Admitting Provider Ni Rodriguez is a 51-year-old male, unknown PMH, who was playing Frisbee golf when he collapsed. Bystanders did start CPR and called EMS. Upon EMS arrival, patient was without a pulse. Per the report, patient was in multiple rhythms during resuscitation, including asystole and V. fib. En route patient received reported 5 defibrillations, 5 doses of IV epinephrine, as well as 30 mg IV amiodarone, 100 mg IV lidocaine, 1 amp of IV bicarb, and 1 mg IV atropine. Presented to the ED intubated with a Garry airway, right proximal tibia IO line in place. I was told the patient had been down for approximately 40 minutes without a pulse. At one point they did regain a pulse for 5-10 minutes, however lost it again but were able to regain it. Patient did present to the ED with a pulse. On arrival, patient was intubated with an ET tube, received an additional 500 cc IV fluid. Initial EKG on arrival showed A. fib with RVR, anterolateral injury pattern and prolonged QT. There were ST elevations in the lateral leads. Patient was emergently brought to the cardiac catheterization lab. At the time I was called for admission, there was CXR available that shows ET tube is in place, lungs appear clear and there is no pneumothorax. Labs were pending. Patient was admitted to ICU s/p cardiac catheterization. Cardiac cath revealed nonobstructive multivessel CAD, did not require stenting cardiac output was preserved. Upon transfer to the ICU, patient was extubated and following commands or ICU staff. He was noted to have some mild respiratory distress and was placed on BiPAP. He was then sent for stat CT to rule out PE as the origin of his cardiac arrest. Upon arrival back to the unit, patient went into pulseless V. tach and CPR was initiated. Despite best efforts and > 30 minutes of ACLS protocol, patient was pronounced at 1336. Principal Diagnosis 1. cardiac arrest 2. ventricular tachycardia 3. ventricular fibrillation 4. aspiration pneumonia 5. acute hypoxic/hypercarbic respiratory failure 6. severe lactic acidosis 7. shock liver and pancreatitis 8. acute renal failure 2nd to ATN 9. elevated troponin / type 2 MO / myocardial demand ischemia 10. abnormal CBC; studies suggestive of new diagnosis of CLL 11. type 2 diabetes 12. tobacco use 13. hypertension Discharge Exam at time of - pupils fixed/dilated; no spontaneous breathing; no palpable pulse; no heart tones; no response to voice/pain Discharge Data Allergies Allergy/AdvReac Type Severity Reaction Status Date / Time ibuprofen AdvReac Unknown Verified 11/27/21 12:32 [place]ations [facility] Relations Specialist Procedures Performed Operation Date: 11/27/21 10:00 Actual Procedures s Cineradiography w/Routine Exam - Kamaljit Gleason MD p Cath, Right and Left Heart - Kamaljit Gleason MD p Central Venous Cath Placement - Kamaljit Gleason MD s IVUS Coronary Single Vessel - Kamaljit Gleason MD s IVUS Coronary each ADDL Vessel - Kamaljit Gleason MD s Intro Needle/Cath Ext Artery - Kamaljit Gleason MD Summary: 1. Moderate nonobstructive multivessel CAD - * 50 to 60% ostial LAD by IVUS * 30% ostial circumflex. 60% small OM2, 50% mid OM3 * 30 to 40% mid RCA 2. Normal left and right-sided filling pressures 3. Normal pulmonary artery pressures [facility] - Rodolfo Dennis MD Ordered Studies Chest X-Ray 11/27/21 09:39 XR chest 1V portable HISTORY: 51 years-old Male Chest Pain acute cardiac arrest COMPARISON: None TECHNIQUE: Semierect AP view of the chest FINDINGS: Endotracheal tube overlies the midline, 4.0 cm superior to the maría elena. Enteric tube distal tip projects over the gastroesophageal junction. Mild gaseous distention of the stomach. Cardiomediastinal and hilar silhouettes are within normal limits. No pneumothorax, pleural effusion, airspace consolidation or overt pulmonary edema. Mild right hemidiaphragmatic elevation. Bones appear grossly intact. IMPRESSION: 1. Endotracheal and enteric tube placement as above. 2. The lungs appear clear. 3. No pneumothorax. ACT 112: Negative or not required by law. The above report was generated using voice recognition software. It may contain grammatical, syntax or spelling errors. Electronically signed by: Satnam Perales M.D. 11/27/2021 10:07 AM Chest CTA 11/27/21 12:10 CT ANGIOGRAPHY OF THE CHEST, PULMONARY EMBOLUS PROTOCOL CLINICAL HISTORY: Post cardiac arrest. COMPARISON STUDY: Chest radiograph November 27, 2021 at 9:37 AM. TECHNIQUE: Following IV administration of 108 mL of Optiray, helical axial images of the chest were obtained utilizing the pulmonary embolus protocol. Maximal intensity projections and sagittal and coronal reformats were viewed on an independent 3D workstation. IV contrast was administered without complication. Automated exposure control was utilized for the study. A dose lowering technique was utilized adhering to the principles of ALARA. CT DOSE: 662.05 mGycm FINDINGS: No pulmonary emboli are identified although segmental and subsegmental pulmonary arteries are suboptimally assessed due to respiratory motion. There is no thoracic aortic dissection. Size of the heart is normal. There is no pericardial effusion. The endotracheal and nasogastric tubes have been removed. There is gaseous distention of the stomach, partially imaged on this exam. There is no pneumothorax or pleural effusion. There has been interval development of extensive consolidation since chest radiograph performed earlier today. Specifically, note is made of dense consolidation within the apical and posterior segments of the right upper lobe as well as the superior segments of both lower lobes. There are additional airspace opacities within lungs. There is mild interlobular septal thickening. Mucus within the right mainstem bronchus is noted. Airways are patent. There is no cavitation. No pneumothorax or pleural effusion is present. There is hepatic steatosis. No acute fracture within the visualized bony thorax. IMPRESSION: 1. No pulmonary emboli identified although segmental and subsegmental pulmonary arteries suboptimally assessed due to respiratory motion. 2. Interval development of extensive multifocal consolidation since chest radiographs performed earlier today. This is nonspecific however aspiration pneumonia is favored. Superimposed pulmonary edema would be difficult to exclude. No pneumothorax or pleural effusion. 3. Hepatic steatosis. ACT 112: Negative or not required by law. Electronically signed by: Gwyn Martinez M.D. 11/27/2021 1:22 PM Hospital Course (1) Cardiac arrest: 51yo male with history of T2DM, HTN, and tobacco use who was playing frisbee golf and had a witnessed collapse.Patient lost his pulse and was not breathing. Bystander CPR was initiated and EMS was summoned to the scene. Per the ER attending's record -- "When EMS arrived the patient was without a pulse. He had various rhythms during the resuscitation, including asystole and V. fib. He was defibrillated 5 times, received 5 doses of IV epinephrine. Patient received 300 mg of IV amiodarone, 100 mg of IV lidocaine, 1 amp of IV bicarb, 1 mg of IV atropine. He received 500 cc of IV saline. Right proximal tibial IO line was placed. Downtime estimated at around 40 to 45 minutes." At some point the patient was intubated in the field via Garry airway. As per EMS, the patient did regain a pulse for about 5 to 10 minutes and then, lost his pulse again. The resuscitation on the way to the hospital continued and they again regained a pulse. The patient presented to the [facility] ED with a pulse. Code blue and code heart alerts were called upon arrival in the [facility] ER. Once in the ER the ER attending exchanged his Garry airway for ETT via glidescope. He was taken emergently to the radiographer cardiac catheterization by Dr Gleason and no obstructive coronary lesion was found; no stent deployed. Subsequently admitted to the ICU. Upon admission to the ICU the patient was following commands. He was subsequently extubated. Unfortunately, within a short period of time, the patient's oxygen requirements increased to the point of needing BIPAP. CTA chest was obtained to r/o PE - no embolus was seen. CTA chest c/w extensive aspiration pneumonia. At ~1250pm, after return from radiology, the patient again arrested - ventricular fibrillation/tachycardia was seen on monitoring. ACLS was initiated. Until his at 1336 he received COPIOUS amounts of epinephrine, multiple shocks/defibrillations, multiple doses of bicarbonate, epinephrine drip, additional doses of amiodarone, and compressions/airway support. Despite valiant efforts ROSC could not be achieved. The code was called and the patient was pronounced at 1336. The exact etiology of the refractory ventricular tachycardia/fibrillation was uncertain as he did not have obstructive CAD. Potassium and magnesium were wnl. Autopsy was declined by the patient's family. (2) Shock: (3) Ventricular tachycardia: (4) Ventricular fibrillation: (5) Type 2 MO (myocardial infarction): HS troponin just shy of 100 upon ER presentation. (6) Acute kidney injury (DENY) with acute tubular necrosis (ATN): (7) Acute respiratory failure with hypoxia and hypercarbia: 2nd to cardiac arrest, aspiration pneumonia, etc. (8) Aspiration pneumonia: (9) Shock liver: AST and ALT sari on subsequent LFT checks c/w shock liver. (10) Diabetes mellitus: (11) HTN (hypertension): (12) Tobacco dependence: (13) Pancreatitis: Lipase was elevated likely due to shock state. (14) Abnormal CBC: The patient had a marked lymphocytosis at time of ER presentation. Peripheral smear review showed findings concerning for CLL. Total Time Total Time Spent Total Time Spent (In Minutes): 15 Discharge Plan Discharge Items Patient Disposition: Other Date/Time: 11/27/21 13:36 Coding Level of Care Code None Diagnoses Cardiac arrest I46.9 Shock R57.9 Ventricular tachycardia I47.2 Ventricular fibrillation I49.01 Type 2 MO (myocardial infarction) I21.A1 Acute kidney injury (DENY) with acute tubular necrosis (ATN) N17.0 Acute respiratory failure with hypoxia and hypercarbia J96.01; J96.02 Aspiration pneumonia J69.0 Shock liver K72.00 Diabetes mellitus E11.9 HTN (hypertension) I10 Tobacco dependence F17.200 Pancreatitis K85.90 Abnormal CBC R79.89
[2021-11-28] MEDS ORDERED: ATORVASTATIN 40 MG TAB PO SCH (09:00)
[2021-11-28] MEDS ORDERED: ASPIRIN 81 MG ECTAB PO SCH (09:00)
--- NOTE | 2021-12-06 10:12 | Coding Query ---
PRESENT ON ADMISSION QUERY To promote full compliance with coding requirements relating to pateint care, physician participation is requested in all cases of human intelligence uncertainty. Please assist us with the question(s) below: Please place an X within the parenthesis (x). The following diagnosis listed in this patient's medical record require physician assistance to determine if they were present on admission (POA) or not. Please advise for each diagnosis whether it was present on admission, not present on admission, or if it was clinically undetermined. 1. ACUTE HYPOXIC/HYPERCARBIC RESPIRATORY FAILURE (documented on the Discharge Summary) ( x) Present On Admission ( ) Not Present On Admission ( ) Clinically Undetermined Thank you July Hull *Definition of the present on admission (POA)-Present on admission is defined as present at the time the order for inpatient admission occurs. Conditions that develop during an outpatient encounter prior to a written order for inpatient admission (including emergency department, observation, or outpatient surgery) are considered present on admission. MTDD
--- NOTE | 2021-12-06 10:15 | Coding Query ---
CODING QUERY To promote full compliance with coding requirements relating to patient care, provider participation is requested in all cases of president sales and marketing uncertainty. Please assist us with the question(s) below: Coding Question(s): Please specify below, in your clinical opinion, the most likely cause of the Cardiac Arrest. ( x ) most likely caused by Ventricular Fibrillation -it was a combination of both vtach and vfib (x ) most likely caused by Ventricular Tachycardia ( ) most likely caused by Aspiration Pneumonia ( ) most likely caused by Other: Please Specify ( ) Unknown likely cause Physician's Response(s): Thank you July Hull Principal Diagnosis: "that condition established after study, to be chiefly responsible for occasioning the admission of the patient to the hospital for care." Co-Existing Principal Diagnosis: "when two or more diagnoses equally meet the criteria for principal diagnosis as determined by the circumstances of admission, diagnostic work up, and/or therapy provided, and the Alphabetic Index, Tabular List, or another coding guideline does not provide sequencing direction, any one of the diagnoses may be sequenced first." "When the physician has documented what appears to be a current diagnosis in the body of the record, but has not included the diagnosis in the final diagnostic statement, the physician should be asked whether the diagnosis should be added." ([facility] 2 QTR90. p3-4) TORIBIO
--- NOTE | 2021-12-06 10:17 | Coding Query ---
CODING QUERY To promote full compliance with coding requirements relating to patient care, provider participation is requested in all cases of life insurance salesperson uncertainty. Please assist us with the question(s) below: Coding Question(s): Please specify below, the diagnosis most responsible for the Inpatient Admission that was present on admission: ( ) Acute Hypoxic/Hypercarbic Respiratory Failure ( x ) Cardiac Arrest ( ) Ventricular Tachycardia ( ) Ventricular Fibrillation ( ) Cardiogenic Shock ( ) Aspiration Pneumonia ( ) Other: Please Specify Physician's Response(s): Thank you July Hull Principal Diagnosis: "that condition established after study, to be chiefly responsible for occasioning the admission of the patient to the hospital for care." Co-Existing Principal Diagnosis: "when two or more diagnoses equally meet the criteria for principal diagnosis as determined by the circumstances of admission, diagnostic work up, and/or therapy provided, and the Alphabetic Index, Tabular List, or another coding guideline does not provide sequencing direction, any one of the diagnoses may be sequenced first." "When the physician has documented what appears to be a current diagnosis in the body of the record, but has not included the diagnosis in the final diagnostic statement, the physician should be asked whether the diagnosis should be added." ([facility] 2 QTR90. p3-4) TORIBIO
== END 2021-11-27 19:00 | disposition expired ==
LOC: EDBD → ED 09:18 → CC 09:55 → 1E 10:37